=== PATIENT | female | born 1990 | race Caucasian/White ===

== ENCOUNTER 2020-11-01 06:02 | Inpatient (IN) | payer OTHER ==
[2020-11-01] MEDS ORDERED: VITAFOL-OB+DHA1 EACH PO (06:06)
[2020-11-01] MEDS ORDERED: CALCIUM500 M1 (06:06)
== END 2020-11-03 10:35 | disposition home or self-care (01) | DRG 807 ==
LOC: FBC 06:02
PROVIDERS: ADMIT Obstetrics & Gynecology; ATTEND Obstetrics & Gynecology
PROC: 10E0XZZ Delivery of Products of Conception, External Approach (ICD-10-PCS; principal; 2020-11-01)
PROC: 0KQM0ZZ Repair Perineum Muscle, Open Approach (ICD-10-PCS; 2020-11-01)
PROC: 00HU33Z Insertion of Infusion Device into Spinal Canal, Percutaneous Approach (ICD-10-PCS; 2020-11-01)
PROC: 3E0R3BZ Introduction of Anesthetic Agent into Spinal Canal, Percutaneous Approach (ICD-10-PCS; 2020-11-01)
DX: O42.92 Full-term premature rupture of membranes, unspecified as to length of time between rupture and onset of labor (principal); Z37.0 Single live birth; Z3A.40 40 weeks gestation of pregnancy; Z20.822 Contact with and (suspected) exposure to COVID-19; O76 Abnormality in fetal heart rate and rhythm complicating labor and delivery; O70.1 Second degree perineal laceration during delivery; Z87.891 Personal history of nicotine dependence
CPT/HCPCS: 36415; 59025; 85027; 99213; C9803; J2590; J2795; J3010; J7121; U0003

== ENCOUNTER 2022-02-24 08:00 | Day surgery (SDC) | payer OTHER ==
[~2022-02-24] VITALS: Ht 175.3 cm; Wt 84.1 kg
--- NOTE | ~2022-02-24 | OR ---
[facility] [address], [place] [address] Draft DATE OF OPERATION: 02/24/2022 SURGEON: Kiko Monte DO ROTOR BALANCER: Mehrdad Lopez. PROCEDURE: Laparoscopic bilateral ovarian cystectomy. PREOPERATIVE DIAGNOSIS: Bilateral ovarian cyst. POSTOPERATIVE DIAGNOSIS: Bilateral ovarian cyst. INDICATION: The patient is a 31-year-old G1, P1 female who had incidental bilateral ovarian cyst consistent with dermoids, first visualized during her 1st trimester dating ultrasound during . Cyst continued to be monitored throughout and remained relatively stable. She has continued while the patient was . We discussed torsion risk and recommendation for operative bilateral cystectomy, but due to the depth of each cyst within each ovary deferred until was complete. On most recent ultrasound, the left-sided cyst had an enlarged and increasingly well-delineated solid component. Risks, benefits, and alternatives to bilateral ovarian cystectomy were discussed and the patient elected to proceed. DESCRIPTION OF PROCEDURE: The patient was taken back to the operating room where she was placed under general anesthesia and positioned in dorsal lithotomy. Hulka uterine manipulator was placed without difficulty vaginally. Surgeon's gloves were changed and attention was turned to the abdomen. A vertical infraumbilical incision was made with a scalpel and carried down to the underlying fascia with blunt sharp dissection with Metzenbaum scissors. Fascia was incised with Metzenbaum scissors. Hemostats were fixed to the superior and inferior margin, which were each marked with a stay suture of 0 Vicryl. Peritoneum was entered bluntly. Francisco Javier trocar was placed after sweep to confirm intraabdominal placement and abdomen was insufflated with CO2 gas. Abdomen was surveyed with findings as noted below. Left lateral trocar was placed under direct visualization after infiltration with local anesthetic. A 5 mm port was used. Right lower quadrant and additional 5 mm port was placed under direct visualization after infiltration with local PATIENT NAME: RAHUL HUTCHINSON OPERATIVE REPORT DATE OF : [birth year] REPORT #: [id number] PHYSICIAN: KIKO MONTE DO PCP: FABIAN PABLO PAC REPORT IS CONFIDENTIAL AND NOT TO BE RELEASED WITHOUT AUTHORIZATION [facility] [address], [place] [address] Draft anesthetic. The patient was positioned in Trendelenburg and attention was turned to the left ovary. Ovarian stroma was scored with monopolar hook, then grasped with Toshia graspers and fenestrated graspers allowing the cyst to be bluntly dissected and shelled out from within the stroma. Once shelled out, this was noted to be multi lobulated and intact. This was then placed in an EndoCatch bag and removed through the umbilical incision. Francisco Javier trocar was placed, replaced and attention was turned to the oozing ovarian stroma. This was cauterized with a ball tip cautery, monopolar cautery and Tisseel hemostatic agent was applied and ultimately achieve hemostasis. This was copiously suction irrigated and once hemostasis was confirmed. Once hemostasis was achieved on the left. Case was discussed with patient's to review his thoughts on pursuing the right. He elected to move forward with a right ovarian cystectomy as well acknowledging in small possibility of ovarian injury on the left and potentially on the right as well, stating that the patient would not want to go through this surgery again to come back and complete right ovarian cystectomy at a later date. We scrubbed to return to operating room in a similar manner on the right as was performed on the left. Monopolar hook was used to create a linear score in the ovary adjacent to the fimbria. Cyst was easily shelled out using Toshia graspers and fenestrated graspers. This cyst was noted to be a single white cyst unfortunately just before finally freeing the cyst. It was inadvertently punctured and sick, fatty appearing contents consistent with a dermoid were expelled and immediately suctioned from the abdomen. The remaining cyst wall and contents were placed in an EndoCatch bag and removed through the umbilical trocar site in a similar manner as before losing ovarian stroma was cauterized with a ball tip cautery, monopolar cautery and Tisseel were applied. Pelvis was again copiously suction irrigated with warm sterile saline. Hemostasis was confirmed. Pneumoperitoneum was evacuated. The fascia was closed with oh Vicryl in a running fashion with stay sutures tied over top of the fascial closure and skin were closed with 4-0 Vicryl. Uterine manipulator was removed. Horne catheter was removed. Sponge and instrument counts were correct and the patient was taken to recovery in stable and satisfactory condition. FINDINGS: Normal-appearing uterus and bilateral tubes, ovaries bilaterally appear normal, though mildly enlarged from initial visualization, left ovarian cyst, multi lobulated was solid and cystic components. Right ovarian cyst more homogeneous in appearance with thick creamy white content and an inadvertent puncture assessed. No intraabdominal adhesions were noted. No endometriosis lesions were noted overlying the bladder. Uterosacral ligaments or bilateral ovarian fossa. ANESTHESIA: General. BLOOD LOSS: PATIENT NAME: RAHUL HUTCHINSON OPERATIVE REPORT DATE OF : [birth year] REPORT #: [id number] PHYSICIAN: KIKO MONTE DO PCP: FABIAN PABLO PAC REPORT IS CONFIDENTIAL AND NOT TO BE RELEASED WITHOUT AUTHORIZATION [facility] [address] [place], [place] [address] [address] . COMPLICATIONS: None. DO HALIMA Lackey/GEORGE /[id number] Copies: ~ PATIENT NAME: RAHUL HUTCHINSON OPERATIVE REPORT DATE OF : [birth year] REPORT #: [id number] PHYSICIAN: KIKO MONTE DO PCP: FABIAN PABLO PAC REPORT IS CONFIDENTIAL AND NOT TO BE RELEASED WITHOUT AUTHORIZATION
[~2022-02-24 08:00] MED LIST: CALCIUM500 M1; VITAFOL-OB+DHA1 EACH PO
--- NOTE | 2022-02-24 13:44 | NUR ---
02/24/22 1344 Saira Nielson 1337- PT ARRIVES TO PACU REACTIVE TO VERBAL STIMULI. PT FALLS TO SLEEP WHEN NOT BEING STIMULATED. RESP EVEN AND UNLABORED. OXYGEN SAT 100% ON 6L VIA MASK. 1341- PT AROUSABLE TO VOICE. PT REPORTS NO PAIN OR NAUSEA. 1343- DR. ISAAC AT THE BEDSIDE TO TALK WITH THE PT. OXYGEN TITRATED OFF.
--- NOTE | 2022-02-24 14:23 | NUR ---
1415: PATIENT BACK IN DAY SURGERY ROOM FROM PACU. RATES PAIN 4-5/10. NAUSEOUS AFTER TRANSFER FROM PACU. 3 ABDOMINAL LAP SITES WITH BANDAIDS. SCANT AMOUNT OF RED DRAINAGE ON EACH BANDAID. PERIPAD IN PLACE WITH NO DRAINAGE. VS CHECKED. SCDs ON. IV SITE WNL. AT BEDSIDE. CALL LIGHT WITHIN REACH. OFIRMEV ORDERED BY SCOTT.
--- NOTE | 2022-02-24 14:35 | NUR ---
OFIRMEV INFUSION STARTED. NO OTHER NEEDS AT THIS TIME. CALL LIGHT WITHIN REACH. AT BEDSIDE.
--- NOTE | 2022-02-24 14:47 | NUR ---
PATIENT GIVEN JELLO PER REQUEST.
[2022-02-24] MEDS ORDERED: HYDROCODON-ACE1 EA10 PO (15:01)
[2022-02-24] MEDS ORDERED: IBUPROFEN800 MG PO (15:01)
--- NOTE | 2022-02-24 15:18 | NUR ---
1505: PATIENT TAKING SMALL BITES OF JELLO. STATES STILL FEELS NAUSEOUS, SO TAKING IN JELLO SLOW. VS CHECKED. NO OTHER NEEDS AT THIS TIME. CALL LIGHT WITHIN REACH. AT BEDSIDE.
--- NOTE | 2022-02-24 15:27 | NUR ---
PATIENT CONTINUES TO FEEL NAUSEOUS. OFFERED PATIENT ANTINAUSEA MEDICATIONS. PATIENT DECLINED THOSE MEDS AT THIS TIME.
--- NOTE | 2022-02-24 16:05 | NUR ---
PATIENT STATES NAUSEA SLIGHTLY BETTER. NOT READY TO GET OOB AT THIS TIME. HOB RAISED. VS CHECKED. PATIENT GOING TO ATTEMPT TO EAT SANDWICH SHE BROUGHT IN FROM HOME. IV SALINE LOCKED. SCDs ON. AT BEDSIDE. CALL LIGHT WITHIN REACH.
--- NOTE | 2022-02-24 17:36 | NUR ---
1720 STATES SHES FINE AND WOULD LIKE TO GO HOME. IS DRESSED.
== END 2022-02-24 17:20 | disposition home or self-care (01) ==
LOC: OPS 08:00 → DS 08:00 → OPS 10:00
PROVIDERS: ATTEND Obstetrics & Gynecology
PROC: 0UB24ZZ Excision of Bilateral Ovaries, Percutaneous Endoscopic Approach (ICD-10-PCS; principal; 2022-02-24 10:00)
DX: D27.0 Benign neoplasm of right ovary (principal); D27.1 Benign neoplasm of left ovary; Z30.431 Encounter for routine checking of intrauterine contraceptive device
CPT/HCPCS: J0131; J1100; J1885; J2001; J2405; J2704; J2765; J3010; J7121

== ENCOUNTER 2024-06-30 20:33 | Inpatient (IN) | payer OTHER ==
[~2024-06-30 20:33] MED LIST changes: +HYDROCODON-ACE1 EA10 PO; +IBUPROFEN800 MG PO
[2024-06-30] MEDS ORDERED: OXYTOCIN/DEXTROSE 5% 20 UNITS/100 ML BAG IV SCH (21:15)
[2024-06-30] MEDS ORDERED: LACTATED RINGER'S 1,000 ML IV PRN (21:15)
[2024-06-30] MEDS ORDERED: MAGNESIUM HYDROXIDE/AL HYDROX 30 ML CUP PO PRN ×2 (21:15→23:15)
[2024-06-30] MEDS ORDERED: CALCIUM CARBONATE 500 MG CHEW PO PRN ×2 (21:15→23:15)
[2024-06-30 21:16] LABS: HEMATOCRIT 37.3 % (35.0-50.0); HEMOGLOBIN 12.7 g/dL (12.0-18.0); MCH 27.8 (27-36); MCHC 34.1 g/dl (30-36); MCV 81.7 fl (81-99); RBC 4.57 M/ul (4.3-5.7)
[2024-06-30] MEDS ORDERED: ROPIVACAINE 0.2% 200 ML BAG ONE (21:20)
[2024-06-30] MEDS ORDERED: fentaNYL citrate 100 MCG/2 ML VIAL ONE (21:20)
[2024-06-30 21:32] VITALS: BP 126/84
[2024-06-30 21:47] LABS: ABO O; ANTIBODY SCREEN NEGATIVE; RH POSITIVE
[2024-06-30] MEDS ORDERED: LACTATED RINGER'S 500 ML IV PRN (22:00)
[2024-06-30] MEDS ORDERED: LACTATED RINGER'S 2,000 ML IV ONE (22:00)
[2024-06-30] MEDS ORDERED: ROPIVACAINE 0.2% 200 ML BAG EPIDURAL SCH (22:00)
[2024-06-30] MEDS ORDERED: ePHEDrine sulfate 5 MG/ML SYRINGE IV PRN (22:00)
[2024-06-30] MEDS ORDERED: TRANEXAMIC ACID IN NACL,ISO-OS 100 ML IV ONE (22:16)
[2024-06-30] MEDS ORDERED: BENZOCAINE 60 ML AEROSOL TOP PRN (23:15)
[2024-06-30] MEDS ORDERED: WITCH HAZEL/GLYCERIN 1 EA PAD TOP PRN (23:15)
[2024-06-30] MEDS ORDERED: OXYTOCIN/0.9 % SODIUM CHLORIDE 500 ML IV SCH (23:15)
[2024-06-30] MEDS ORDERED: MAGNESIUM HYDROXIDE 30 ML UDC PO PRN (23:15)
[2024-06-30] MEDS ORDERED: IBUPROFEN 600 MG TAB PO PRN (23:15)
[2024-06-30] MEDS ORDERED: ACETAMINOPHEN 325 MG TAB PO PRN (23:15)
[2024-06-30] MEDS ORDERED: HYDROCORTISONE ACETATE 25 MG SUPP PR PRN (23:15)
[2024-06-30] MEDS ORDERED: LIDOCAINE 2% VISCOUS 6 ML SYR TOP ONE ×2 (23:15)
[2024-07-01] MEDS ORDERED: SENNOSIDES/DOCUSATE 1 EA TAB PO SCH (09:00)
== END 2024-07-02 10:20 | disposition home or self-care (01) | DRG 807 ==
LOC: FBCO 20:33 → FBC 20:51
PROVIDERS: ADMIT Obstetrics & Gynecology; ATTEND Advanced Practice Midwife
PROC: 10E0XZZ Delivery of Products of Conception, External Approach (ICD-10-PCS; principal; 2024-06-30)
PROC: 10907ZC Drainage of Amniotic Fluid, Therapeutic from Products of Conception, Via Natural or Artificial Opening (ICD-10-PCS; 2024-06-30)
PROC: 00HU33Z Insertion of Infusion Device into Spinal Canal, Percutaneous Approach (ICD-10-PCS; 2024-06-30)
PROC: 3E0R3BZ Introduction of Anesthetic Agent into Spinal Canal, Percutaneous Approach (ICD-10-PCS; 2024-06-30)
DX: O99.02 Anemia complicating childbirth (principal); Z37.0 Single live birth; O76 Abnormality in fetal heart rate and rhythm complicating labor and delivery; Z3A.39 39 weeks gestation of pregnancy; Z90.89 Acquired absence of other organs; Z79.899 Other long term (current) drug therapy; Z98.890 Other specified postprocedural states
CPT/HCPCS: 01960; 36415; 80307; 85027; 86850; 86900; 86901; A9270; J2590; J2795; J3010; J7121